=== PATIENT | female | born 1955 | race Caucasian/White ===

== ENCOUNTER 2016-10-13 06:50 | Emergency (ER) | payer MEDICARE ==
[~2016-10-13] VITALS: Ht 172.7 cm; Wt 82.5 kg
[2016-10-13 06:53] VITALS: BP 122/82
[2016-10-13] MEDS ORDERED: TRAM50TA2 PO (07:05)
[2016-10-13] MEDS ORDERED: SULF1TAB24 PO (07:05)
[2016-10-13] MEDS ORDERED: LISI-167 PO (07:05)
[2016-10-13] MEDS ORDERED: BUSP10TA PO (07:05)
[2016-10-13] MEDS ORDERED: CEPH-368 PO (07:05)
== END 2016-10-13 08:37 | disposition home or self-care (01) ==
LOC: ED 07:43
DX: L03.311 Cellulitis of abdominal wall (principal); J44.9 Chronic obstructive pulmonary disease, unspecified; I10 Essential (primary) hypertension; Z79.899 Other long term (current) drug therapy
CPT/HCPCS: 99282

== ENCOUNTER → 2016-10-17 | Outpatient (CLI) | payer MEDICARE ==
[~2016-10-17] MED LIST: BUSP10TA PO; CEPH-368 PO; LISI-167 PO; SULF1TAB24 PO; TRAM50TA2 PO
== END | disposition home or self-care (01) ==
LOC: WOUND 07:47
PROVIDERS: ATTEND Internal Medicine
DX: T81.31XD Disruption of external operation (surgical) wound, not elsewhere classified, subsequent encounter (principal); J44.9 Chronic obstructive pulmonary disease, unspecified; I10 Essential (primary) hypertension; Z87.891 Personal history of nicotine dependence; Y83.8 Other surgical procedures as the cause of abnormal reaction of the patient, or of later complication, without mention of misadventure at the time of the procedure
CPT/HCPCS: G0463; WOU0463

== ENCOUNTER → 2016-10-19 | Outpatient (CLI) | payer MEDICARE | END | disposition home or self-care (01) | LOC: WOUND 08:15 | PROVIDERS: ATTEND Physician Assistant | DX: T81.31XD Disruption of external operation (surgical) wound, not elsewhere classified, subsequent encounter (principal); J44.9 Chronic obstructive pulmonary disease, unspecified; I10 Essential (primary) hypertension; Z87.891 Personal history of nicotine dependence; Y83.8 Other surgical procedures as the cause of abnormal reaction of the patient, or of later complication, without mention of misadventure at the time of the procedure | CPT/HCPCS: G0463; WOU0463 ==

== ENCOUNTER → 2016-10-22 | Outpatient (CLI) | payer MEDICARE | END | disposition home or self-care (01) | LOC: WOUND 08:00 | PROVIDERS: ATTEND Physician Assistant | DX: T81.31XD Disruption of external operation (surgical) wound, not elsewhere classified, subsequent encounter (principal); J44.9 Chronic obstructive pulmonary disease, unspecified; I10 Essential (primary) hypertension; Z87.891 Personal history of nicotine dependence; Y83.8 Other surgical procedures as the cause of abnormal reaction of the patient, or of later complication, without mention of misadventure at the time of the procedure | CPT/HCPCS: 99213 ==

== ENCOUNTER → 2016-10-24 | Outpatient (CLI) | payer MEDICARE | END | disposition home or self-care (01) | LOC: WOUND 08:32 | PROVIDERS: ATTEND Internal Medicine Cardiovascular Disease | DX: T81.31XD Disruption of external operation (surgical) wound, not elsewhere classified, subsequent encounter (principal); J44.9 Chronic obstructive pulmonary disease, unspecified; I10 Essential (primary) hypertension; Z87.891 Personal history of nicotine dependence; Y83.8 Other surgical procedures as the cause of abnormal reaction of the patient, or of later complication, without mention of misadventure at the time of the procedure | CPT/HCPCS: G0463; WOU0463 ==

== ENCOUNTER → 2016-10-26 | Outpatient (CLI) | payer MEDICARE | END | disposition home or self-care (01) | LOC: WOUND 08:00 | PROVIDERS: ATTEND Internal Medicine | DX: T81.31XD Disruption of external operation (surgical) wound, not elsewhere classified, subsequent encounter (principal); J44.9 Chronic obstructive pulmonary disease, unspecified; I10 Essential (primary) hypertension; Z87.891 Personal history of nicotine dependence; Y83.8 Other surgical procedures as the cause of abnormal reaction of the patient, or of later complication, without mention of misadventure at the time of the procedure | CPT/HCPCS: G0463; WOU0463 ==

== ENCOUNTER → 2016-10-31 | Outpatient (CLI) | payer MEDICARE | END | disposition home or self-care (01) | LOC: WOUND 08:00 | PROVIDERS: ATTEND Internal Medicine | DX: T81.31XD Disruption of external operation (surgical) wound, not elsewhere classified, subsequent encounter (principal); I10 Essential (primary) hypertension; E78.5 Hyperlipidemia, unspecified; E66.9 Obesity, unspecified; Z68.27 Body mass index [BMI] 27.0-27.9, adult; J44.9 Chronic obstructive pulmonary disease, unspecified; Z87.891 Personal history of nicotine dependence; Y83.8 Other surgical procedures as the cause of abnormal reaction of the patient, or of later complication, without mention of misadventure at the time of the procedure | CPT/HCPCS: 97597 ==

== ENCOUNTER → 2016-11-02 | Outpatient (CLI) | payer MEDICARE | END | disposition home or self-care (01) | LOC: WOUND 07:50 | PROVIDERS: ATTEND Physician Assistant | DX: T81.31XD Disruption of external operation (surgical) wound, not elsewhere classified, subsequent encounter (principal); J44.9 Chronic obstructive pulmonary disease, unspecified; I10 Essential (primary) hypertension; E78.5 Hyperlipidemia, unspecified; E66.9 Obesity, unspecified; Z68.27 Body mass index [BMI] 27.0-27.9, adult; Z87.891 Personal history of nicotine dependence; Y83.8 Other surgical procedures as the cause of abnormal reaction of the patient, or of later complication, without mention of misadventure at the time of the procedure | CPT/HCPCS: 99212 ==

== ENCOUNTER → 2016-11-20 | Outpatient (CLI) | payer MEDICARE | END | disposition home or self-care (01) | LOC: WOUND 08:30 | PROVIDERS: ATTEND Internal Medicine | DX: T81.31XD Disruption of external operation (surgical) wound, not elsewhere classified, subsequent encounter (principal); J44.9 Chronic obstructive pulmonary disease, unspecified; I10 Essential (primary) hypertension; E66.9 Obesity, unspecified; Z68.27 Body mass index [BMI] 27.0-27.9, adult; E78.5 Hyperlipidemia, unspecified; Z87.891 Personal history of nicotine dependence; Y83.8 Other surgical procedures as the cause of abnormal reaction of the patient, or of later complication, without mention of misadventure at the time of the procedure | CPT/HCPCS: 97597 ==

== ENCOUNTER → 2017-01-29 | Outpatient (CLI) | payer MEDICARE ==
[~2017-01-29] MED LIST changes: +FLUO40CA2 PO; +GABA300C10 PO; +HYDR-3144 PO; +MELO-184 PO; +MONT10TA9 PO; +OMEP-110 PO
[2017-01-29 10:35] LABS: HEMATOCRIT 45.2 % (34.6-47.8); HEMOGLOBIN 14.8 g/dL (11.7-16.4); WHITE BLOOD COUNT 4.4 x10^3/uL (3.4-10)
[2017-01-29 10:46] LABS: ASPARTATE AMINO TRANSFERASE 14 U/L (15-37); BLOOD UREA NITROGEN 15 mg/dL (7-18)
== END | disposition home or self-care (01) ==
LOC: STAR 09:15
PROVIDERS: ATTEND Orthopaedic Surgery
DX: Z01.818 Encounter for other preprocedural examination (principal); M17.12 Unilateral primary osteoarthritis, left knee; K21.9 Gastro-esophageal reflux disease without esophagitis; R79.1 Abnormal coagulation profile; Z79.899 Other long term (current) drug therapy
CPT/HCPCS: 36415; 80053; 81003; 83036; 85025; 85610; 85730; 87081; 87147; 93005

== ENCOUNTER 2017-02-12 06:00 | Inpatient (IN) | payer MEDICARE ==
[~2017-02-12] VITALS: Ht 172.7 cm; Wt 76.4 kg
[~2017-02-12 06:00] MED LIST changes: -HYDR-3144 PO; +HYDR-3245 PO; -MELO-184 PO; +MELO15TA24 PO
[2017-02-12] MEDS ORDERED: BUPIVACAINE/PF 0.25% ONE (06:07)
[2017-02-12] MEDS ORDERED: VANCOMYCIN PER PHARMACY MC STA (06:14)
[2017-02-12] MEDS ORDERED: MIDAZOLAM 1 MG/ML, 2ML ONE (06:29)
[2017-02-12] MEDS ORDERED: FENTANYL PF 100 MCG/2ML ONE ×3 (06:30→10:11)
[2017-02-12] MEDS ORDERED: VANCOMYCIN 1,400 MG in SODIUM CHLORIDE 0.9% 250 ML IV ONE (06:30)
[2017-02-12] MEDS ORDERED: LACTATED RINGERS 1,000 ML IV SCH (07:05)
[2017-02-12 07:06] VITALS: BP 133/86
[2017-02-12] MEDS ORDERED: morphine SULFATE/PF 1 MG/ML, 10ML ONE (07:26)
[2017-02-12] MEDS ORDERED: VANCOMYCIN 1,000 MG ONE (07:26)
[2017-02-12] MEDS ORDERED: KETOROLAC 60 MG/2 ML ONE (07:26)
[2017-02-12] MEDS ORDERED: SODIUM CHLORIDE 0.9% 50 ML ONE (07:27)
[2017-02-12] MEDS ORDERED: TRANEXAMIC ACID 100 MG/ML, 10ML ONE (07:27)
[2017-02-12] MEDS ORDERED: EPINEPHRINE 1 MG/ML, 1ML ONE (07:27)
[2017-02-12] MEDS ORDERED: ROPIvacaine/PF 0.2%, 20 ML ONE (07:27)
[2017-02-12] MEDS ORDERED: HYDROmorphone 2 MG/ML, 1ML ONE ×2 (08:12→10:11)
[2017-02-12] MEDS ORDERED: KETAMINE 10 MG/ML, 20ML ONE (08:12)
[2017-02-12] MEDS ORDERED: ONDANSETRON 2MG/ML, 2ML IVPush PRN ×3 (09:00→13:30)
[2017-02-12] MEDS ORDERED: OXYcodone 5 MG/5 ML ORAL.SOL UDC PO PRN ×2 (09:00→10:30)
[2017-02-12] MEDS ORDERED: FENTANYL PF 100 MCG/2ML IV PRN ×2 (09:00→10:30)
[2017-02-12] MEDS ORDERED: ACETAMINOPHEN 325 MG TABLET PO PRN ×3 (09:00→14:00)
[2017-02-12] MEDS ORDERED: HYDROmorphone 1 MG/ML, 1ML IV PRN (09:00)
[2017-02-12] MEDS ORDERED: PROMETHAZINE 25 MG/ML, 1ML IV PRN ×2 (09:00→10:30)
[2017-02-12] MEDS ORDERED: MEPERIDINE/PF 25MG/0.5ML IVPush PRN ×2 (09:00→10:30)
[2017-02-12] MEDS ORDERED: hydrALAzine 20 MG/ML, 1ML IV PRN ×2 (09:00→10:30)
[2017-02-12] MEDS ORDERED: MIDAZOLAM 1 MG/ML, 2ML IV PRN (09:00)
[2017-02-12] MEDS ORDERED: ALBUTEROL/IPRATROPIUM 2.5MG/0.5MG, 3 ML NPPB PRN (09:00)
[2017-02-12] MEDS ORDERED: LABETALOL 5MG/ML, 20ML IV PRN ×2 (09:00→10:30)
[2017-02-12] MEDS ORDERED: OXYcodone 5 MG/5 ML ORAL.SOL UDC ONE (10:11)
[2017-02-12] MEDS ORDERED: ACETAMINOPHEN 325 MG TABLET ONE (10:11)
[2017-02-12] MEDS: HYDROmorphone 1 MG/ML, 1ML IV PRN ×4 (10:30→10:53)
[2017-02-12 13:06] LABS: HEMATOCRIT 40.7 % (34.6-47.8); HEMOGLOBIN 13.4 g/dL (11.7-16.4)
[2017-02-12 13:23] VITALS: BP 111/64
[2017-02-12] MEDS ORDERED: OXYcodone IR 5MG TABLET PO PRN (13:30)
[2017-02-12] MEDS ORDERED: BISACODYL 10 MG SUPP PR PRN (13:30)
[2017-02-12] MEDS ORDERED: PROMETHAZINE 25 MG/ML, 1ML IM PRN (13:30)
[2017-02-12] MEDS ORDERED: MAGNESIUM HYDROXIDE 8%, 30ML UDC PO PRN (13:30)
[2017-02-12] MEDS ORDERED: SCOPOLAMINE PATCH, 1.5MG PATCH.TD72 TD PRN (13:30)
[2017-02-12] MEDS ORDERED: PROMETHAZINE 25 MG SUPP PR PRN (13:30)
[2017-02-12] MEDS ORDERED: morphine SULFATE 10 MG/ML, 1ML IV PRN (13:30)
[2017-02-12] MEDS ORDERED: ALUMINUM/MAG/SIMETHICONE 30 ML UDC PO PRN (13:30)
[2017-02-12] MEDS ORDERED: ONDANSETRON ODT 4 MG PO PRN (13:30)
[2017-02-12] MEDS ORDERED: LORazepam 2 MG/ML, 1ML IV PRN (13:30)
[2017-02-12] MEDS ORDERED: DIPHENHYDRAMINE 25 MG CAPSULE PO PRN (13:30)
[2017-02-12] MEDS ORDERED: LORazepam 1MG TABLET PO PRN (13:30)
[2017-02-12] MEDS ORDERED: SENNA/DOCUSATE TABLET PO PRN (14:00)
[2017-02-12] MEDS ORDERED: D5%-LACTATED RINGERS 1,000 ML IV SCH (14:00)
[2017-02-12] MEDS ORDERED: TRANEXAMIC ACID 1,000 MG in SODIUM CHLORIDE 0.9% 100 ML IVPB ONE (14:00)
[2017-02-12] MEDS ORDERED: DIAZEPAM 5 MG TABLET PO PRN (14:00)
[2017-02-12] MEDS: CEFAZOLIN PMX 2GM/100ML 100 ML IVPB SCH ×2 (16:05→23:44)
[2017-02-12] MEDS ORDERED: LABETALOL 5MG/ML 40ML VIAL ONE (16:45)
[2017-02-12] MEDS ORDERED: KETOROLAC 30 MG/1 ML ONE (16:45)
[2017-02-12] MEDS ORDERED: DEXAMETHASONE 4 MG/ML, 1ML ONE (16:45)
[2017-02-12] MEDS ORDERED: PROPOFOL 10 MG/ML, 20ML ONE (16:45)
[2017-02-12] MEDS ORDERED: CEFAZOLIN 1,000 MG ONE (16:45)
[2017-02-12] MEDS ORDERED: ONDANSETRON 2MG/ML, 2ML ONE (16:45)
[2017-02-12 20:22] VITALS: BP 118/74
[2017-02-12] MEDS ORDERED: MONTELUKAST 10 MG TABLET PO SCH (21:00)
[2017-02-12] MEDS: GABAPENTIN 300 MG CAPSULE PO SCH (21:39)
[2017-02-12] MEDS: DOCUSATE 100 MG CAPSULE PO SCH (21:39)
[2017-02-12] MEDS: HYDROcodone/APAP 10/325 MG TABLET PO PRN (21:43)
[2017-02-12 23:56] VITALS: BP 109/66
[2017-02-13] MEDS: HYDROcodone/APAP 10/325 MG TABLET PO PRN ×3 (02:35→10:40)
[2017-02-13 02:37] VITALS: BP 106/61
[2017-02-13 05:12] LABS: HEMATOCRIT 35.6 % (34.6-47.8); HEMOGLOBIN 11.9 g/dL (11.7-16.4)
[2017-02-13] MEDS ORDERED: ASPIRIN 325 MG TABLET EC PO SCH (06:00)
[2017-02-13] MEDS ORDERED: OMEPRAZOLE 20 MG CAPSULE.DR PO SCH (07:30)
[2017-02-13] MEDS: DOCUSATE 100 MG CAPSULE PO SCH (07:44)
[2017-02-13 07:49] VITALS: BP 142/83
[2017-02-13] MEDS ORDERED: ONDA4TAB7 PO (08:22)
[2017-02-13] MEDS ORDERED: HYDR-3307 PO (08:22)
[2017-02-13] MEDS ORDERED: ASPI325T17 PO (08:23)
[2017-02-13] MEDS: GABAPENTIN 300 MG CAPSULE PO SCH (09:00)
[2017-02-13] MEDS ORDERED: MULTIVITAMINS/MINERALS TABLET PO SCH (09:00)
[2017-02-13] MEDS ORDERED: FLUOXETINE 20 MG CAPSULE PO SCH (09:00)
== END 2017-02-13 11:45 | disposition home health service (06) | DRG 470 ==
LOC: ORIP 06:00 → EDSTATUS 08:00 → 4NOR 11:30
PROVIDERS: ADMIT Orthopaedic Surgery; ATTEND Orthopaedic Surgery
PROC: 0SRD0J9 Replacement of Left Knee Joint with Synthetic Substitute, Cemented, Open Approach (ICD-10-PCS; principal; 2017-02-12 08:00)
DX: M17.12 Unilateral primary osteoarthritis, left knee (principal); J44.9 Chronic obstructive pulmonary disease, unspecified; K21.9 Gastro-esophageal reflux disease without esophagitis; Z88.8 Allergy status to other drugs, medicaments and biological substances
CPT/HCPCS: 36415; 85014; 85018; C1713; J0171; J0690; J1100; J1170; J1885; J2250; J2274; J2405; J2704; J2795; J3010; J3370; J3490; C1776; J7050; J7120

== ENCOUNTER 2017-12-30 11:08 | Emergency (ER) | payer MEDICARE ==
[~2017-12-30] VITALS: Ht 172.7 cm; Wt 71.0 kg
[~2017-12-30 11:08] MED LIST changes: +ASPI325T17 PO; +HYDR-3307 PO; +ONDA4TAB7 PO
[2017-12-30 11:48] LABS: MD NO
[2017-12-30 12:09] LABS: ALANINE AMINOTRANSFERASE 23 U/L (12-78); ALBUMIN 3.7 g/dL (3.4-5.0); ANION GAP 10 mmol/L (5-15); CALCIUM 8.8 mg/dL (8.5-10.1); CHLORIDE 106 mmol/L (98-107); CREATININE 0.85 mg/dL (0.55-1.02)
[2017-12-30 12:14] LABS: ALKALINE PHOSPHATASE 50 U/L (45-117); BILIRUBIN,TOTAL 0.3 mg/dL (0.2-1.0); TOTAL PROTEIN 6.9 g/dL (6.4-8.2); TROPONIN I < 0.015 ng/mL (0.000-0.045)
[2017-12-30 12:20] LABS: THYROID STIMULATING HORMONE 0.819 mIU/L (0.358-3.740)
[2017-12-30] MEDS ORDERED: NITROGLYCERIN SINGLE TAB 0.4 MG SL ONE (13:10)
[2017-12-30] MEDS ORDERED: ASPIRIN 81 MG TABLET CHEW ONE ×2 (13:10→13:12)
[2017-12-30] MEDS: NITROGLYCERIN SINGLE TAB 0.4 MG SL PRN ×2 (13:18→13:26)
[2017-12-30] MEDS ORDERED: BUSP5TAB2 PO (13:24)
[2017-12-30] MEDS ORDERED: ASPIRIN 81 MG TABLET CHEW PO ONE (13:30)
[2017-12-30 13:31] VITALS: BP 131/92
[2017-12-30 13:42] LABS: BASOPHILS # (AUTO) 0.02 x10^3/uL (0-0.1); BASOPHILS % (AUTO) 1 % (0-1); EOSINOPHILS # (AUTO) 0.03 x10^3/uL (0-0.4); EOSINOPHILS % (AUTO) 1 % (1-7); LYMPHOCYTES # (AUTO) 1.15 x10^3/uL (1-3.4); LYMPHOCYTES % (AUTO) 25 % (22-44); MEAN CORPUSCULAR HEMOGLOBIN 31.5 pg (27.0-34.8); MEAN CORPUSCULAR HGB CONC 33.7 g/dL (32.4-35.8); MEAN CORPUSCULAR VOLUME 93.4 fL (80-100); MEAN PLATELET VOLUME 7.9 fL (7.4-10.4); MONOCYTES # (AUTO) 0.34 x10^3/uL (0.2-0.8); MONOCYTES % (AUTO) 7 % (2-9); NEUTROPHILS % (AUTO) 67 % (42-75); PLATELET COUNT 345 x10^3/uL (130-400); RED CELL DISTRIBUTION WIDTH 12.3 % (9.6-15.2)
== END 2017-12-30 14:09 | disposition left against medical advice (07) ==
LOC: ED 13:39
DX: R07.9 Chest pain, unspecified (principal); E87.6 Hypokalemia; I10 Essential (primary) hypertension; J44.9 Chronic obstructive pulmonary disease, unspecified
CPT/HCPCS: 36415; 71045; 80053; 83735; 83880; 84443; 84484; 85025; 93005; 99285

== ENCOUNTER → 2018-01-16 | Outpatient (CLI) | payer MEDICARE ==
[~2018-01-16] MED LIST changes: +BUSP5TAB2 PO
== END | disposition home or self-care (01) ==
LOC: CFH 06:37
PROVIDERS: ATTEND Internal Medicine
DX: I51.7 Cardiomegaly (principal); R00.2 Palpitations
CPT/HCPCS: 93306

== ENCOUNTER 2021-03-08 10:22 | Emergency (ER) | payer MEDICARE, OTHER ==
[~2021-03-08] VITALS: Ht 172.7 cm; Wt 68.5 kg
[~2021-03-08 10:22] MED LIST changes: -HYDR-3245 PO; +HYDR-3248 PO; -HYDR-3307 PO; +HYDR1TAB53 PO; +MONT10TA17 PO; -MONT10TA9 PO; +SULF-23 PO; -SULF1TAB24 PO
--- NOTE | 2021-03-08 10:36 | NUR ---
EKG DONE IN TRIAGE. VERONICA ALLRED, IN TRIAGE FOR ASSESSMENT. NO CODE NEURO NECESSARY PER ERP.
[2021-03-08 12:22] LABS: BASOPHILS % (AUTO) 1 % (0-1); EOSINOPHILS % (AUTO) 1 % (1-7); LYMPHOCYTES % (AUTO) 38 % (22-44); MEAN CORPUSCULAR HGB CONC 33.8 g/dL (32.4-35.8); MEAN PLATELET VOLUME 7.3 fL (7.4-10.4); MONOCYTES % (AUTO) 8 % (2-9); NEUTROPHILS % (AUTO) 52 % (42-75); PLATELET COUNT 243 x10^3/uL (130-400); RED BLOOD COUNT 4.66 x10^6/uL (3.82-5.3); RED CELL DISTRIBUTION WIDTH 13.3 % (9.6-15.2)
[2021-03-08 12:32] LABS: ALBUMIN 3.3 g/dL (3.4-5.0); ANION GAP 7 mmol/L (5-15); CALCIUM 8.4 mg/dL (8.5-10.1); CHLORIDE 104 mmol/L (98-107)
[2021-03-08 12:40] LABS: ALANINE AMINOTRANSFERASE 24 U/L (12-78); ALKALINE PHOSPHATASE 43 U/L (45-117); BILIRUBIN,TOTAL 0.3 mg/dL (0.2-1.0); CREATININE 0.71 mg/dL (0.55-1.02); TOTAL PROTEIN 6.8 g/dL (6.4-8.2); TROPONIN I < 0.015 ng/mL (0.000-0.045)
--- NOTE | 2021-03-08 16:02 | NUR ---
NEEDLE CONTROL CHENILLER: PT TO ROOM FROM LOBBY
--- NOTE | 2021-03-08 16:10 | NUR ---
WENT TO URGENT CARE AND WAS SENT HERE, STATING HER SPEECH OFF.
[2021-03-08 16:27] LABS: MICROSCOPIC NOT IND
[2021-03-08] MEDS ORDERED: MECLIZINE CHEWABLE 25 MG TAB PO ONE (16:30)
[2021-03-08] MEDS ORDERED: MECLIZINE CHEWABLE 25 MG TAB ONE (16:31)
--- NOTE | 2021-03-08 17:16 | NUR ---
ROAD TESTED PATIENT AND SHES FEELING IMPROVED. LET MD KNOW. SHES READING BOOK CALMLY
[2021-03-08 17:43] VITALS: BP 138/78
--- NOTE | 2021-03-08 17:44 | NUR ---
DISCHARGE REVIEWED. SHOWS UNDERSTANDING
== END 2021-03-08 17:45 | disposition home or self-care (01) ==
LOC: ED 10:52
DX: R42 Dizziness and giddiness (principal); R53.1 Weakness; I10 Essential (primary) hypertension; J44.9 Chronic obstructive pulmonary disease, unspecified; Z87.891 Personal history of nicotine dependence; Z90.49 Acquired absence of other specified parts of digestive tract
CPT/HCPCS: 36415; 70450; 71045; 80053; 81003; 84484; 85025; 93005; 99285